=== PATIENT | female | born 1965 | race Caucasian/White ===

== ENCOUNTER 2025-03-14 19:53 | Emergency (ER) | payer BC, SELFPAY ==
[2025-03-14 19:54] VITALS: BMI 35.4
[2025-03-14 20:03] VITALS: BP 164/102; BP 166/108; PULSE 76; RESP 18; TEMP 36.7; O2SAT 96
--- NOTE | 2025-03-14 20:18 | PD.EDEAR ---
ED Ear RME/HPI General Chief complaint: Ear Stated complaint: BILATERAL EARS PLUGGED AND PAIN Time Seen by Provider: 03/14/25 19:56 Arrival date/time: 03/14/25 19:53 RME / HPI RME / HPI Narrative: 59-year-old female with a past medical history of hypertension presents to the ED with a complaint of a 1 day history of bilateral ear pain and the feeling of water being clogged in her ears. She states she went [place] the [place] today and has been unable to drink the water from her ears. She denies any recent upper respiratory illness with fever, chills, cough, runny nose or nasal congestion, sore throat or sinus pressure. She has no previous history of swimmer's ear. Related Data Previous Rx's ?Medication ?Instructions ?Recorded amoxicillin 875 mg-potassium 1 tab PO BID #20 tabs 03/14/25 clavulanate 125 mg tablet ciprofloxacin 0.2 %-hydrocortisone 3 drp otic (ear) BID 7 days #10 mL 03/14/25 1 % ear drops,suspension (Cipro HC) ibuprofen 600 mg tablet 600 mg PO Q8H PRN fever or pain 03/14/25 #20 tabs Allergies Allergy/AdvReac Type Severity Reaction Status Date / Time No Known Allergies Allergy Verified 03/14/25 19:58 Review of Systems Review of Systems Systems Reviewed: All systems reviewed, normal except as documented Past Medical History Social History SMOKING STATUS: Never smoker ED Exam Narrative Physical exam: A&O, afebrile and non-toxic appearing 59-year-old female, no acute distress. Left TM without erythema and left canal without edema, erythema, or discharge. Right TM with erythema as well as swelling, erythema and exudate noted to the right canal. Positive pain with pinna/tragus movement of the right ear. Neck is supple, no adenopathy. Lung sounds are clear, RRR, Abdomen is non-distended. Moves all extremities well. Course Course Course Narrative: Patient was given ibuprofen 600 mg p.o. as well as Augmentin 875 mg p.o. prior to discharge. Quality Measures none Orders Category Date Time Status Amoxicillin/Pot Clav 875 [Augmentin 875] Med 03/14/25 20:17 Once 1 tab PO X1 ONE Ibuprofen Tab [Motrin Tab] Med 03/14/25 20:15 Once 600 mg PO X1 ONE Vital Signs Vital signs: Vital Signs Temperature 98.0 F 03/14/25 20:03 Pulse Rate 76 03/14/25 20:03 Respiratory Rate 18 03/14/25 20:03 Blood Pressure 164/102 H 03/14/25 20:03 Pulse Oximetry (%) 96 03/14/25 20:03 Oxygen Delivery Method Room Air 03/14/25 20:03 Ear MDM Narrative MDM Narrative:: 59-year-old female with a past medical history of hypertension presents to the ED with a complaint of a 1 day history of bilateral ear pain and the feeling of water being clogged in her ears. She states she went [place] today and has been unable to drink the water from her ears. She denies any recent upper respiratory illness with fever, chills, cough, runny nose or nasal congestion, sore throat or sinus pressure. She has no previous history of swimmer's ear. A&O, afebrile and non-toxic appearing 59-year-old female, no acute distress. Left TM without erythema and left canal without edema, erythema, or discharge. Right TM with erythema as well as swelling, erythema and exudate noted to the right canal. Positive pain with pinna/tragus movement of the right ear. Neck is supple, no adenopathy. Lung sounds are clear, RRR, Abdomen is non-distended. Moves all extremities well. Patient was given ibuprofen 600 mg p.o. as well as Augmentin 875 mg p.o. prior to discharge. Symptoms, exam and diagnostic studies are consistent with: Right otitis media with right otitis externa. Left otalgia. Patient was discharged home in stable condition with prescriptions for ciprofloxacin HC otic suspension for otitis externa as well as Augmentin 875 mg for otitis media. Patient/family advised to follow-up with their PCP in 24-48 hours. Encouraged to return to the ED for any new or worsening symptoms. Patient data External records reviewed:: None Clinical information provided by:: patient Social determinants that could affect healthcare access:: none Patient has the following chronic illnesses:: Hypertension How is presenting disease/condition affected by chronic disease/condition?: uneffected by Evaluation data The following diagnostics were reviewed and interpreted by me:: other (specify) (N/A) Lab and/or radiology exams considered but not ordered:: N/A Interpretation Summary: N/A Medications / Prescriptions Medications or Prescriptions considered but not ordered:: N/A Medication administrations:: Medication Administration History Ibuprofen (Ibuprofen Tab 600 Mg Tablet) 600 mg PO X1 ONE Stop: 03/14/25 20:16 Ibuprofen 600 mg and Augmentin 875 mg p.o. Consultations Consultation(s) initiated? (list below): No Diagnosis Ear Differential Diagnosis: otitis externa, otitis media, ruptured TM and cerumen impaction Most likely diagnosis given after review of the tests above:: Right otitis media with right otitis externa. Left otalgia. Admission Indicated Admission indicated?: not indicated Explain why admission is indicated or not indicated:: Patient is stable for discharge Admission Request Was there a request for admission?: No Disposition Plan Disposition Plan: Discharge Discharge Attestation Discharge Attestation: The patient and all family members were given an opportunity to ask questions and understood the discharge instructions. Discharge instructions specifically effects, indications for sooner follow up or return to the emergency department, and the expected course of current diagnosis. Patient condition: Stable Discharge Plan Plan Patient Disposition: HOME (Self Care) Discharge Disposition comment: Stable Prescriptions/Referrals Prescriptions/Med Rec: New Cipro HC 0.2-1 % drops,suspension 3 drp otic (ear) BID 7 Days Qty: 10 0RF amoxicillin-pot clavulanate 875-125 mg tablet 1 tab PO BID Qty: 20 0RF ibuprofen 600 mg tablet 600 mg PO Q8H PRN (Reason: fever or pain) Qty: 20 0RF Problem List Clinical Impression: Otitis externa, Otitis media Patient/Caregiver Discharge Instructions Education Materials: ED Otitis Media Antibiotic ..., ED External Ear Infection (Adult) Additional Instructions: Take the antibiotics as prescribed and complete the course even though you may be feeling better. Follow-up with your primary care physician in 24 to 48 hours. Return to the ED for any new or worsening symptoms. Print Language: Guatemalan Stand Alone Forms: [employer] Award Info., Patient Portal Info Letter PA/SUPERCHARGER REPAIR SUPERVISOR Supervising Physician PA/SUPERCHARGER REPAIR SUPERVISOR Supervising Physician: Dr. Simon
[2025-03-14] MEDS: IBUPROFEN TAB 600 MG TABLET PO (20:21)
[2025-03-14] MEDS: AMOXICILLIN/POT CLAV 875 TABLET 1 TAB PO (20:31)
== END 2025-03-14 20:47 | disposition home or self-care (01) ==
LOC: SERX 20:44
PROVIDERS: Emergency Provider Emergency Medicine; PCP Physician Assistant Medical
DX: H60.91 Unspecified otitis externa, right ear (principal); H66.91 Otitis media, unspecified, right ear; H92.02 Otalgia, left ear
CPT/HCPCS: 99283; A9270